=== PATIENT | male | born 1960 | race Caucasian/White ===

== ENCOUNTER 2019-04-17 06:10 | Emergency (ER) | payer OTHER ==
[~2019-04-17] VITALS: Ht 198.1 cm; Wt 90.7 kg
[~2019-04-17 06:10] MED LIST: Z.0.COUMADIN10 MG PO; Z.0.NEURONTIN400 MG PO; Z.0.TENORMIN50 MG PO; Z.0.VESICARE5 MG PO
--- OUTSIDE RECORDS SUMMARY | 2019-04-17 06:12 | XMS REPORT | Summary of Care ---
Author Author [facility] Organization [facility] Address Unknown Phone Unavailable Care Team Providers Care Investigation Officer Name Role Phone System, Pcp Not In PCP Tobin Cao 51 Reason for Referral * Radiology Services (Emergency) Referred By Contact Referred To Contact Status Reason Specialty Diagnoses / Procedures Rufus Zayas MD [address] [facility] [address] [place] [address] Ct Imaging [address] [facility] [address] [place] [address] Pending Radiology Diagnoses Renal stone P rocedures CT ABD AND PELVIS WO CONTRAST Reason for Visit * Reason Comments Establish Care Encounter Details Care Team Description Date Type Department Rufus Zayas MD [address] [facility] [address] [place], [place] [id number] Establish Care 03/14/2019 Office Visit [facility] Nephrology [address] [place] [address]. 8th Floor; [address] [place] [address] Allergies Comments Active Allergy Reactions Severity Noted Date Penicillins 03/08/2012 Sulfa Antibiotics 03/08/2012 documented as of this encounter (statuses as of 03/14/2019) Medications End Date Status Medication Sig Dispensed Refills Start Date Active gabapentin (NEURONTIN) Take 1 Cap by 60 Cap 5 400 MG mouth two 3 capsuleIndications: times daily. Migraine Active rizatriptan (MAXALT-SENIOR ENGINEERING TECHNICIAN) TAKE 1 TABLET 12 Tab 3 10 MG disintegrating BY MOUTH ONCE 4 tablet NEEDED FOR MIGRAINE FOR 1 DOSE Active cyclobenzaprine 0 (FLEXERIL) 10 MG tablet 5 Active hydrocodone-acetaminophen Take 1 Tab by 0 (NORCO) 10-325 MG per mouth every 6 tablet hours as needed for Pain. Active warfarin (COUMADIN) 10 MG Take 1 Tab by 30 Tab 0 tablet mouth daily. 7 As directed by MD per INR Active warfarin (COUMADIN) 10 MG TAKE 1 TABLET 30 Tab 2 tabletIndications: Atrial BY MOUTH 8 fibrillation, unspecified DAILY type DIRECTED Active testosterone cypionate 50 mg/cc, 1 10 mL 2 (DEPOTESTOTERONE vial=cc 8 CYPIONATE) 200 MG/ML Inject _.25 injection cc IM Q _3_ days. Active warfarin (COUMADIN) 10 MG TAKE 1 TABLET 30 Tab 3 tabletIndications: Atrial BY MOUTH 8 fibrillation, unspecified DAILY type DIRECTED Active Na Sulfate-K Sulfate-Mg [SUPREP] Take 1 Bottle 0 Sulf (SUPREP BOWEL PREP as directed. 8 KIT) 17.5-3.13-1.6 GM/177ML SOLN Active enoxaparin (LOVENOX) 100 Inject 1 mL 10 Syringe 0 MG/ML SOLNIndications: into the skin 9 History of mechanical two times aortic valve replacement daily. Active tadalafil (CIALIS) 20 MG TAKE 1 TABLET 6 Tab 0 tablet BY MOUTH 9 NEEDED DIRECTED Active warfarin (COUMADIN) 10 MG TAKE 1 TABLET 90 Tab 3 tabletIndications: Atrial BY MOUTH 9 fibrillation, unspecified DAILY type DIRECTED Active lisinopril (PRINIVIL, TAKE 1 TABLET 90 Tab 0 ZESTRIL) 5 MG tablet BY MOUTH 9 DAILY Active metoprolol (LOPRESSOR) 25 TAKE 1 AND 90 Tab 3 MG tablet 1/2 TABLETS 9 BY MOUTH TWICE DAILY 03/14/2019 Discontinued tadalafil (CIALIS) 5 MG Take 1 Tab by 30 Tab 1 tablet mouth as 8 needed for Erectile Dysfunction. Compound med 03/14/2019 Discontinued NEEDLE, DISP, 18 G 18G X 0.25 mL 2 20 Each 3 1-1/2" MISC times weekly. 8 03/14/2019 Discontinued enoxaparin 100 MG/ML Inject 1 7 Syringe 0 SOLNIndications: Current Syringe into 8 use of penitentiary the skin two anticoagulation times daily. 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 Never smoker, no respiratory sx, and no pulm specific complaint since that time. PFTs with mild obtruction--may be related to his Marfan's or s/p cardiac surgery. Plan for F/U CT 05/2014 . . . -CT chest (low dose nodule protocol) PFT 10/24/13: Nonspec defect vs obstruction--low FEV1, VC with normal TLC and reduced DLCO. FEV1: 3.2 (62%), FVC: 4.4 (70%), RATIO 72%, T.8 (91%), rv: 3.3 (131%), dlco: 24.72 (56%) L ast Assessment & Plan: He has a 4 mm RUL nodule seen incidentally on CTA from 2011. Never smoker, no respiratory sx, and no pulm specific complaint since that time. PFTs with mild obtruction--may be related to his Marfan's or s/p cardiac surgery. Recommend F/U CT Chest to ensure stability of nodule. Since it has been about 2 years and he is low risk if that is unchanged then he probably does not need further f/u imaging. -CT chest (low dose nodule protocol) -F/U PRN--he will call or use [employer] to get CT results--if anything concerning we will then initiate further workup. Peyronie's disease 10/16/2013 Cataract 03/20/2013 Subluxation of lens 03/20/2013 Headache(784.0) 11/16/2012 Cervicogenic headache 08/02/2012 Cervical spondylosis without myelopathy 08/02/2012 Neck pain 08/02/2012 Erectile dysfunction 04/04/2012 Prostate cancer 04/04/2012 Marfan's syndrome 04/04/2012 Overview: Marfan's s/p mitral repair, aortic valve replacement, and replacement/repair of ascending aorta and aortic arch on anticoagulation. Doing well, followed by cards. L ast Assessment & Plan: Marfan's s/p mitral repair, aortic valve replacement, and replacement/repair of ascending aorta and aortic arch on anticoagulation. Doing well, followed by cards. Screening for blood or protein in urine 04/04/2012 Current use of penitentiary anticoagulation 03/17/2012 History of mechanical aortic valve replacement 03/17/2012 documented as of this encounter (statuses as of 03/14/2019) Social History Date Tobacco Use Types Packs/Day Years Used Never Smoker Smokeless Tobacco: Never Used Drinks/Week oz/Week Comments Alcohol Use 3 Cans of beer 1.8 Occ Yes Sex Assigned at Date Recorded Not on file Industry Job Start Date Occupation Not on file Not on file Not on file Travel End Travel History Travel Start No recent travel history available. documented as of this encounter Last Filed Vital Signs Reading Time Taken Comments Vital Sign 125/67 03/14/2019 2:38 PM CDT Blood Pressure 56 03/14/2019 2:38 PM CDT Pulse 36.7 C (98 F) 03/14/2019 2:38 PM CDT Temperature 16 03/14/2019 2:38 PM CDT Respiratory Rate - - Oxygen Saturation - - Inhaled Oxygen Concentration 93.4 kg (206 lb) 03/14/2019 2:38 PM CDT Weight 198.1 cm (6' 6") 03/14/2019 2:38 PM CDT Height 23.81 03/14/2019 2:38 PM CDT Body Mass Index documented in this encounter Progress Notes * Rufus Zayas MD - 03/14/2019 2:20 PM CDT Date: March 14, 2019 Patient Name: Jon Betancourt Patient Date of : 1960 Chief Complaint: Chief Complaint Patient presents with Establish Care History: History of Present Illness: Jon Betancourt is a 59 y.o. male who presents for initial evaluation. Mr. Betancourt has a complex medical history related to his Marfan's syndrome with MV repair an d AVR repair. He is here for concern of kidney stone. He states that he has a h/o nephrolithiasis in 2011, felt as he passed a stone at that time, none since then. He had CT done at [facility], no nephrolithiasis on that read. He is now presenting with 1 week of diffuse back pain which he reports became mo re localized around his central back, bilateral pain. He is now having 1 day h/ o testicular pain R, with associated nausea no vomiting. Able to tolerate PO. Current Medications: Current Outpatient Medications Medication Sig Dispense Refill cyclobenzaprine (FLEXERIL) 10 MG tablet enoxaparin (LOVENOX) 100 MG/ML SOLN Inject 1 mL into the skin two times elías y. 10 Syringe 0 enoxaparin 100 MG/ML SOLN Inject 1 Syringe into the skin two times daily. (P atient not taking: Reported on 01/18/2019) 7 Syringe 0 gabapentin (NEURONTIN) 400 MG capsule Take 1 Cap by mouth two times daily. 6 0 Cap 5 hydrocodone-acetaminophen (NORCO) 10-325 MG per tablet Take 1 Tab by mouth e very 6 hours as needed for Pain. lisinopril (PRINIVIL, ZESTRIL) 5 MG tablet TAKE 1 TABLET BY MOUTH DAILY 90 T ab 0 lisinopril (PRINIVIL, ZESTRIL) 5 MG tablet TAKE 1 TABLET BY MOUTH DAILY 90 T ab 0 metoprolol (LOPRESSOR) 25 MG tablet TAKE 1 AND 1/2 TABLETS BY MOUTH TWICE DA PERLA 90 Tab 3 Na Sulfate-K Sulfate-Mg Sulf (SUPREP BOWEL PREP KIT) 17.5-3.13-1.6 GM/177ML SOLN [SUPREP] Take as directed. 1 Bottle 0 NEEDLE, DISP, 18 G 18G X 1-1/2" MISC 0.25 mL 2 times weekly. (Patient not ambrose harinder: Reported on 05/19/2018) 20 Each 3 rizatriptan (MAXALT-SENIOR ENGINEERING TECHNICIAN) 10 MG disintegrating tablet TAKE 1 TABLET BY MOUTH ONCE NEEDED FOR MIGRAINE FOR 1 DOSE 12 Tab 3 tadalafil (CIALIS) 20 MG tablet TAKE 1 TABLET BY MOUTH NEEDED DIRECTED 6 Tab 0 tadalafil (CIALIS) 5 MG tablet Take 1 Tab by mouth as needed for Erectile Dy sfunction. Compound med 30 Tab 1 testosterone cypionate (DEPOTESTOTERONE CYPIONATE) 200 MG/ML injection 50 mg /cc, 1 vial=cc Inject _.25 cc IM Q _3_ days. (Patient not taking: Reported on 05/19/2018) 10 mL 2 warfarin (COUMADIN) 10 MG tablet TAKE 1 TABLET BY MOUTH DAILY DIRECTED (P atient not taking: Reported on 01/18/2019) 90 Tab 3 warfarin (COUMADIN) 10 MG tablet TAKE 1 TABLET BY MOUTH DAILY DIRECTED (P atient not taking: Reported on 05/19/2018) 30 Tab 3 warfarin (COUMADIN) 10 MG tablet TAKE 1 TABLET BY MOUTH DAILY DIRECTED (P atient not taking: Reported on 05/19/2018) 30 Tab 2 warfarin (COUMADIN) 10 MG tablet Take 1 Tab by mouth daily. As directed by M D per INR (Patient not taking: Reported on 05/19/2018) 30 Tab 0 No current facility-administered medications for this visit. Allergies: Allergies Allergen Reactions Penicillins Sulfa Antibiotics Past Medical History: Past Medical History: Diagnosis Date Ankle injury Arthritis Cataract Family history of heart murmur History of cardiac arrhythmia Hypertension Marfan syndrome Migraine Mitral valve prolapse Prostate cancer Past Surgical History: Past Surgical History: Procedure Laterality Date HX ANKLE FRACTURE SURGERY HX AORTIC VALVE REPLACEMENT HX HEART SURGERY HX LASIK 2007 HX MITRAL VALVE SURGERY 1999 HX REMOVAL OF PROSTATE 2010 NH REMV CATARACT EXTRACAP,INSERT LENS Right 04/12/2013 Social History: Social History Tobacco Use Smoking status: Never Smoker Smokeless tobacco: Never Used Substance Use Topics Alcohol use: Yes Alcohol/week: 1.8 oz Types: 3 Cans of beer per week Comment: Occ Family History: Family History Problem Relation Name Age of Onset CVA/Stroke Father Marfan Syndrome Brother Diabetes Son Colon Polyps Neg Hx Colon Cancer Neg Hx Review of Systems: Constitutional: no fever, no chills, no night sweats, no unintentional weight ch anges, no fatigue Skin: no rashes, no lesions, no pruritis, no petechiae ENT: no blurry vision, no double vision, no hearing changes, no epistaxis, no or al ulcers Respiratory: no shortness of breath, no cough, no wheezing, no hemoptysis Cardiovascular: no chest pain, no palpitations, no dyspnea of exertion, no parox symal nocturnal dyspnea, no orthopnea Gastrointestinal: no nausea, no vomiting, no diarrhea, no constipation, no abd p ain, no melena/hematochezia Genitourinary: no dysuria, no hematuria, no frequency, no urgency Musculoskeletal: no myalgias, no arthralgias, no stiffness, no tenderness Neurologic: no headache, no numbness/tingling, no weakness, no dizziness, no lig htheadedness Psychiatric: no depression, no insomnia, no excessive drowsiness, no SI Endocrine: no polyuria, no polydipsia, no temp intolerance, no polyphagia Hematologic: no easy bleeding/brusing, no lymphadenopathy, no recurrent infectio ns Examination: BP 125/67 (BP Location: right arm, Patient Position: Sitting, Cuff Size: regular ) | Pulse 56 | Temp 98 F (36.7 C) (Oral) | Resp 16 | Ht 6' 6" (1.981 m) | Wt 206 lb (93.4 kg) | BMI 23.81 kg/m Constitutional: no acute distress, well nourished, appears stated age, +marfans appearance HEENT: Normocephalic, atrumatic, extraocular movements intact, mucous membranes moist, clear oropharynx, normal dentition Neck: Supple, no lymphadenopathy, no jugular venous distention CVS: regular rate and rhythm, +click, peripheral pulses intact Pulm: lungs clear to auscultation bilaterally, no rales, no wheezes, no rhonchi GI: normal bowel sounds, nontender, nondistended, no organomeagaly Ext: no joint inflammation, no clubbing/cyanosis/edema Skin: no decreased skin turgor, no delayed capillary refill, no rashes, no petec hiae Neurologic: awake, alert, oriented, moving all extremities Data: Laboratory Testing: Reviewed in [facility] Radiology Studies: Reviewed in [facility] Impression: Jon Betancourt is a 59 y.o. 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 Kidney Function: normal renal fxn in past, no previous signs of hematuria or proteinuria in the past 2. Electrolytes: no significant electrolytes derangements in the past 3. Acid-base: no significant metabolic acidosis which would point towards RTA as an etiology of renal stones 4. Volume: euvoelmic 5. Heme: H/H has been stable 6. CVS: BP acceptable, following with cardiology 7. : Concern for nephrolithiasis given his history with testicular pain. Will check stat CT abdomen/pelvis stone protocol. If needed, will consider tamsulos in but pt does have h/o sulfa allergy The plan was discussed with the patient who verbalized understanding. Thank you for referring this patient for consultation and allowing me to partici hope in his care. Please do not hesitate to call with any questions. Rufus Zayas MD [facility] Fire Watcherwagon washer, Section of Nephrology [phone] Office: [phone] documented in this encounter Plan of Treatment Care Team Description Date Type Specialty Jorge Comer MD [address] [place] [address] 03/27/2019 Office Visit Ophthalmology Shreya Mcfarland MD [address] [facility] [address] [place] [address] 03/30/2019 Office Visit Cardiology Filemon Tee MD [address] [place] [address] 07/19/2019 Office Visit Ophthalmology Order Schedule Name Type Priority Associated Diagnoses 1 Occurrences starting 03/14/2019 until 03/14/2020 CT ABD AND PELVIS WO Imaging STAT(<24 Renal stone CONTRAST Hrs) Health Maintenance Due Date Last Done Comments TETANUS SHOT (ADULT) 1975 HEPATITIS C SCREENING 1978 HIV SCREENING 1978 FLU VACCINE > 6 MONTHS 02/09/2019 03/23/2018 (Declined), 05/20/2017 (Declined) COLON CANCER SCREENIN07/29/2023 07/29/2018, 07/29/2018 COLONOSCOPY documented as of this encounter Implants Device Identifier Shelf Expiration Date Model / Serial / Lot Implanted Type Area Manufactur er 03/11/2017 20.5 / [id number] / Iol - [id number] [employer] One Piece - Right: Lens MINERVA [id number] Implanted: Qty: 1 on 04/12/2013 by Jorge Comer MD at [facility] [place] 11/08/2017 6D / [id number] / [id number] Capsular Tension Segment - 6d - Right: Lens INTERMEDIATE [id number] Ophthalmic Implanted: Qty: 1 on 04/12/2013 by Jorge Martinez MD at [facility] [place] 07/11/2014 10 / [id number] / [id number] Capsular Tension Rings 12.3/10mm - Right: Lens JB [id number] Implanted: Qty: 1 on 04/12/2013 by Jorge Comer MD at [facility] [place] documented as of this encounter Results Not on filedocumented in this encounter Visit Diagnoses Diagnosis Renal stone - Primary Calculus of kidney Marfan's syndrome Essential hypertension Unspecified essential hypertension documented in this encounter Insurance Type Payer Benefit Subscriber ID Effective Phone Address Plan / Dates Group PPO [employer] [facility] OPEN xxxxxxxxxxx 2016-P [address] [id number] PLUS - MARYANA THAKKAR [phone] documented as of this encounter
--- OUTSIDE RECORDS SUMMARY | 2019-04-17 06:12 | XMS REPORT ---
Author Author [facility] Address Unknown Phone Unavailable Care Team Providers Care Surgery Assistant Name Role Phone DR MARY ADVID Unavailable Unavailable TANYA HARMON JEANETTE Unavailable Unavailable MERY SANDY Unavailable Unavailable Problems This patient has no known problems. Allergies, Adverse Reactions, Alerts This patient has no known allergies or adverse reactions. Medications This patient has no known medications. Encounters Start Date/Time End Date/Time Encounter Type Admission Type Attending Clinicians Care Facility Care Department Encounter ID 2017-10-05 08:45:00 Inpatient [facility] [id number] 2016-12-15 00:00:00 [id number] Results Test Description Test Time Test Comments Text Results Atomic Results Result Comments CT, ABDOMEN 2019-03-16 17:59:[address] scan of the abdomen and pelvis. MEDICAL HISTORY: Renal stone. COMPARISON STUDY: October 11, 2011. TECHNIQUE: Contiguous helical slices were acquired through the ab domen and pelvis without the administration of oral or intravenous contrast. This exam was performed according to our department dose optimization program which includes automated exposure control, adjustment of the mA and/or kV according to the patient's size and/or use of iterative reconstruction technique. FINDINGS: Cardiomegaly is seen with atelectasis or consolidation in the lung bases. The abdomen and pelvis are limited by lack of contrast. The liver, spleen, pancreas, adrenal glands and kidneys are unremarkable. Cholelithiasis is seen with no biliary dilatation. There are no dilated loops of bowel seen suggest obstruction. The appendix is not well seen but no obvious signs of appendicitis are noted. There is no free fluid or free air. No suspicious adenopathy is seen. The aorta is normal in caliber. Atherosclerosis is identified. Bone windows demonstrate poststernotomy changes and degenerative changes. An 8 mm sclerotic focus is seen in the right iliac bone, stable from previous. IMPRESSION:1. No nephrolithiasis seen.2. Study limited by lack of contrast.3. Cholelithiasis. Signed: Juan Arias MDReport Verified Date/Time: 03/16/2019 17:59:22 Reading Location: [facility] C013X Ortho Consult Reading Room UE EXAM 2018-08-01 10:44:00 Surgical Pathology Report Case: [id number] Authorizing Provider: Jeanette Harmon Collected: 07/29/2018 1201 Ord ering Location: [facility] Endoscopy Received: 07/29/2018 1443 Services Pathologist: Rajesh George MD Specimens: A) - Polyp, Colon - Cecum, BX/FORCEP B) - Polyp, Colon - Sigmoid, BX/FORCEP PART A CECAL POLYP, POLYPECTOMY:TUBULAR ADENOMA.PART B SIGMOID POLYP, POLYPECTOMY:COLONIC MUCOSA WITH HYPERPLASTIC FEATURES. Signing Pathologist Direct Phone Line: [phone] signed by Rajesh George MD on 08/01/2018 at 10:44 [id number] A. Cecum colon polyp; B. Sigmoid colon polypThe specimen is received in two containers of formalin both labeled with the patient's information. Part A labeled "cecum colon polyp" consists of three fragments of sun tissue ranging from 0.3 to 0.5 cm, submitted entirely A1. Part B labeled "sigmoid colon polyp" consists of two fragments of sun-red tissue measuring 0.1 and 0.8 cm, submitted entirely B1. CG/pl PERFORMED. PROTHROMBIN TIME/INR 2018-07-29 10:59:00 PROTIME (BEAKER) (test ciyz=649) 13.8 seconds 11.7-14.7 INR (BEAKER) (test eenv=304) 1.1 <=5.9 RECOMMENDED COUMADIN/WARFARIN INR THERAPY RANGESSTANDARD DOSE: 2.0 - 3.0 Inclu rohan: PROPHYLAXIS for venous thrombosis, systemic embolization; TREATMENT for erika ous thrombosis and/or pulmonary embolus.HIGH RISK: Target INR is 2.5-3.5 for pat ients with mechanical heart valves.POCT-GLUCOSE [id number] 10:45:00* Test Item Value Reference Range Comments POC-GLUCOSE METER (BEAKER) (test jbsh=3940) 83 mg/dL 70-[address] [facility] [address] [facility] [address] BASIC METABOLIC [id number] 05:54:00* Test Item Value Reference Range Comments SODIUM (BEAKER) (test dnix=343) 139 meq/L 136-145 POTASSIUM (BEAKER) (test pted=114) 4.2 meq/L 3.5-5.1 CHLORIDE (BEAKER) (test envm=339) 107 meq/L 98-107 CO2 (BEAKER) (test flpe=008) 24 meq/L 22-29 BLOOD UREA NITROGEN (BEAKER) (test njow=351) 19 mg/dL 7-21 CREATININE (BEAKER) (test sskh=881) 0.95 mg/dL 0.57-1.25 GLUCOSE RANDOM (BEAKER) (test mtxj=896) 108 mg/dL 70-105 CALCIUM (BEAKER) (test rjxa=409) 8.3 mg/dL 8.4-10.2 EGFR (BEAKER) (test nctp=5765) 82 mL/min/1.73 sq m ESTIMATED GFR IS NOT ACCURATE CREATININE CLEARANCE IN PREDICTING GLOMERULAR FILTRATION RATE. ESTIMATED GFR IS NOT APPLICABLE FOR DIALYSIS PATIENTS. CBC (HEMOGRAM ONLY)2016-11-27 05:43:00* Test Item Value Reference Range Comments WHITE BLOOD CELL COUNT (BEAKER) (test kstp=386) 7.1 K/ L 4.0-10.0 RED BLOOD CELL COUNT (BEAKER) (test ymjn=862) 4.68 M/ L 4.20-5.80 HEMOGLOBIN (BEAKER) (test islf=900) 13.7 GM/DL 13.0-16.8 HEMATOCRIT (BEAKER) (test vknf=402) 39.8 % 40.0-50.0 MEAN CORPUSCULAR VOLUME (BEAKER) (test udzr=249) 85.0 fL 82.0-98.0 MEAN CORPUSCULAR HEMOGLOBIN (BEAKER) (test uwpb=948) 29.4 pg 27.0-33.0 MEAN CORPUSCULAR HEMOGLOBIN CONC (BEAKER) (test yxev=339) 34.6 GM/DL 32.0-36.0 RED CELL DISTRIBUTION WIDTH (BEAKER) (test dadh=099) 13.7 % 10.3-14.2 PLATELET COUNT (BEAKER) (test qfmi=892) 176 K/CU MM 150-430 MEAN PLATELET VOLUME (BEAKER) (test legi=167) 7.3 fL 6.5-10.5 NUCLEATED RED BLOOD CELLS (BEAKER) (test gfrw=057) 0 /100 WBC 0-0 0.00PT/[id number] 05:43:00* Test Item Value Reference Range Comments PROTIME (BEAKER) (test wyrp=613) 21.4 seconds 11.7-14.7 INR (BEAKER) (test nrgm=886) 1.9 <=5.9 PARTIAL THROMBOPLASTIN TIME (BEAKER) (test zifi=293) 36.8 seconds 22.5-36.0 RECOMMENDED COUMADIN/WARFARIN INR THERAPY RANGESSTANDARD DOSE: 2.0 - 3.0 Inclu rohan: PROPHYLAXIS for venous thrombosis, systemic embolization; TREATMENT for erika ous thrombosis and/or pulmonary embolus.HIGH RISK: Target INR is 2.5-3.5 for pat ients with mechanical heart valves.PROTHROMBIN TIME/[id number] 05:42:00* Test Item Value Reference Range Comments PROTIME (BEAKER) (test repy=127) 21.4 seconds 11.7-14.7 INR (BEAKER) (test iimc=397) 1.9 <=5.9 RECOMMENDED COUMADIN/WARFARIN INR THERAPY RANGESSTANDARD DOSE: 2.0 - 3.0 Inclu rohan: PROPHYLAXIS for venous thrombosis, systemic embolization; TREATMENT for erika ous thrombosis and/or pulmonary embolus.HIGH RISK: Target INR is 2.5-3.5 for pat ients with mechanical heart valves.[id number] 19:28:00* Test Item Value Reference Range Comments ACTIVATED CLOTTING TIME (BEAKER) (test xxtw=458) [address] [facility] [address] [facility] [address] [id number] 19:28:00* Test Item Value Reference Range Comments ACTIVATED CLOTTING TIME (BEAKER) (test pfoz=167) [address] [facility] [address] [facility] [address] [id number] 19:28:00* Test Item Value Reference Range Comments ACTIVATED CLOTTING TIME (BEAKER) (test krkq=137) 332 sec TESTED AT [place] [id number] [facility] [address] [id number] 19:28:00* Test Item Value Reference Range Comments ACTIVATED CLOTTING TIME (BEAKER) (test wmpx=448) 301 sec TESTED AT [place] [id number] [facility] [address] [id number] 19:28:00* Test Item Value Reference Range Comments ACTIVATED CLOTTING TIME (BEAKER) (test fbps=324) 301 sec TESTED AT [place] [address] BASIC METABOLIC [id number] 09:40:00* Test Item Value Reference Range Comments SODIUM (BEAKER) (test okkz=119) 137 meq/L 136-145 POTASSIUM (BEAKER) (test niyk=570) 5.1 meq/L 3.5-5.1 CHLORIDE (BEAKER) (test nxzh=746) 103 meq/L 98-107 CO2 (BEAKER) (test flgg=274) 28 meq/L 22-29 BLOOD UREA NITROGEN (BEAKER) (test pila=781) 27 mg/dL 7-21 CREATININE (BEAKER) (test qkjw=646) 1.09 mg/dL 0.57-1.25 GLUCOSE RANDOM (BEAKER) (test bfjv=949) 89 mg/dL 70-105 CALCIUM (BEAKER) (test ifea=562) 9.2 mg/dL 8.4-10.2 EGFR (BEAKER) (test xyhh=7917) 70 mL/min/1.73 sq m ESTIMATED GFR IS NOT ACCURATE CREATININE CLEARANCE IN PREDICTING GLOMERULAR FILTRATION RATE. ESTIMATED GFR IS NOT APPLICABLE FOR DIALYSIS PATIENTS. [id number] 09:25:00* Test Item Value Reference Range Comments PARTIAL THROMBOPLASTIN TIME (BEAKER) (test okhx=351) 39.6 seconds 22.5-36.0 Within 24 hours, if on CoumadinPROTHROMBIN TIME/[id number] 09:24:00* Test Item Value Reference Range Comments PROTIME (BEAKER) (test jdak=199) 22.9 seconds 11.7-14.7 INR (BEAKER) (test fvic=381) 2.0 <=5.9 RECOMMENDED COUMADIN/WARFARIN INR THERAPY RANGESSTANDARD DOSE: 2.0 - 3.0 Inclu rohan: PROPHYLAXIS for venous thrombosis, systemic embolization; TREATMENT for erika ous thrombosis and/or pulmonary embolus.HIGH RISK: Target INR is 2.5-3.5 for pat ients with mechanical heart valves.Within 24 hours, if on CoumadinCBC (HEMOGRAM ONLY)2016-11-26 09:19:00* Test Item Value Reference Range Comments WHITE BLOOD CELL COUNT (BEAKER) (test xrnq=732) 4.7 K/ L 4.0-10.0 RED BLOOD CELL COUNT (BEAKER) (test olok=746) 4.80 M/ L 4.20-5.80 HEMOGLOBIN (BEAKER) (test hofv=227) 14.1 GM/DL 13.0-16.8 HEMATOCRIT (BEAKER) (test zroh=627) 40.3 % 40.0-50.0 MEAN CORPUSCULAR VOLUME (BEAKER) (test zljb=209) 84.0 fL 82.0-98.0 MEAN CORPUSCULAR HEMOGLOBIN (BEAKER) (test fyrf=668) 29.3 pg 27.0-33.0 MEAN CORPUSCULAR HEMOGLOBIN CONC (BEAKER) (test hsxb=952) 35.0 GM/DL 32.0-36.0 RED CELL DISTRIBUTION WIDTH (BEAKER) (test qzpz=197) 13.5 % 10.3-14.2 PLATELET COUNT (BEAKER) (test wjrw=996) 171 K/CU MM 150-430 MEAN PLATELET VOLUME (BEAKER) (test atai=079) 7.0 fL 6.5-10.5 NUCLEATED RED BLOOD CELLS (BEAKER) (test rgtj=642) 0 /100 WBC 0-0 [id number] 14:15:00* Test Item Value Reference Range Comments POC-CREATININE (BEAKER) (test zzbd=3091) 1.1 mg/dL 0.6-1.[address] [facility] [address] [facility] [address] POC-EGFR (BEAKER) (test hvxk=1096) 69 mL/min/1.73M2
[2019-04-17] MEDS ORDERED: DONNATAL/LIDOCAINE/MAALOX 30 ML SUSP PO STA (06:33)
[2019-04-17] MEDS ORDERED: BELLADONNA ALK/PHENOBARBITAL 5 ML UDC ONE (06:45)
[2019-04-17] MEDS ORDERED: LIDOCAINE VISC 2% SOLN 15 ML UDC ONE (06:45)
[2019-04-17] MEDS ORDERED: ONDANSETRON HCL INJ 2MG/ML 2ML 2 MG/ML VIAL IV STA (07:13)
[2019-04-17] MEDS ORDERED: CLONIDINE HCL 0.1 MG TAB PO ONE (07:15)
[2019-04-17] MEDS ORDERED: CLONIDINE HCL 0.1 MG TAB ONE (07:25)
[2019-04-17] MEDS ORDERED: ONDANSETRON HCL INJ 2MG/ML 2ML 2 MG/ML VIAL ONE (07:25)
--- NOTE | 2019-04-17 07:28 | Diagnostic Imaging Report ---
EXAMINATION: X-RAY CHEST 2 VIEWS, X-RAY ABDOMEN 2 VIEWS INDICATION: Epigastric pain COMPARISON: None FINDINGS: PA and lateral views TUBES and LINES: None. LUNGS: Lungs are well inflated. Lungs are clear. There is no evidence of pneumonia or pulmonary edema. PLEURA: No pleural effusion or pneumothorax. HEART AND MEDIASTINUM: The cardiomediastinal silhouette is unremarkable. Aortic valve replacement. BONES AND SOFT TISSUES: No acute osseous lesion. Soft tissues are unremarkable. Degenerative changes in the spine hips and pelvis. ABDOMEN: No free air under the diaphragm. Sternotomy wires intact. IMPRESSION: No acute thoracic or abdominal radiographic abnormality. Signed by: Dannie Navarrete DO on 04/17/2019 7:24 AM
[2019-04-17] MEDS ORDERED: HYDROCODONE/APAP 5MG-325MG TAB PO ONE (07:30)
[2019-04-17] MEDS ORDERED: HYDROCODONE/APAP 5MG-325MG TAB ONE (07:46)
--- NOTE | 2019-04-17 07:54 | NUR ---
[facility] CALLED FOR TRANSPORT 25 MIN ETA
[2019-04-17 08:35] VITALS: BP 178/85
== END 2019-04-17 08:44 | disposition other institution (70) ==
LOC: FSED 06:10
DX: R10.13 Epigastric pain (principal); I45.9 Conduction disorder, unspecified; R94.31 Abnormal electrocardiogram [ECG] [EKG]; I10 Essential (primary) hypertension
CPT/HCPCS: 71046; 74019; 80048; 80076; 81003; 82553; 84484; 85025; 85610; 93005; 99284; J2405